=== PATIENT | male | born 1965 | race African-American/Black ===

== ENCOUNTER 2019-09-30 04:42 | Emergency (ER) | payer MEDICAID ==
[~2019-09-30] VITALS: Ht 167.6 cm; Wt 97.7 kg
[2019-09-30 09:32] LABS: BASOPHILS % 0.5 % (0.0-2.0); HEMOGLOBIN. 16.9 g/dL (14.0-18.0); LYMPHOCYTES % 37.8 % (20.0-50.0); MEAN CORPUSCULAR HEMOGLOBIN 29.1 pg (28.0-32.0); MEAN CORPUSCULAR VOLUME 85.7 fL (80.0-94.0); MONOCYTES % 13.8 % (2.0-8.0); NEUTROPHILS % 45.9 % (40.0-76.0); PLATELET 119 x1000/uL (130-400); RED BLOOD CELL COUNT 5.83 mill/uL (4.7-6.1); RED CELL DISTRIBUTION WIDTH 14.9 % (11.6-14.6)
[2019-09-30 09:40] LABS: CHLORIDE 103 mEq/L (98-107)
[2019-09-30] MEDS ORDERED: ASPIRIN 325MG EC TABLET PO ONE (10:00)
[2019-09-30] MEDS ORDERED: CEFTRIAXONE 1 G PREMIX 50 ML IV ONE (10:30)
[2019-09-30] MEDS ORDERED: AZITHROMYCIN 500 MG in DEXT 5% WATER 250 ML IV ONE (10:30)
[2019-09-30] MEDS ORDERED: CLONIDINE 0.1MG TABLET PO PRN (11:00)
[2019-09-30] MEDS ORDERED: AZITHROMYCIN 500 MG in DEXT 5% WATER 250 ML IV SCH (11:00)
[2019-09-30] MEDS ORDERED: CEFTRIAXONE 1 G PREMIX 50 ML IV SCH (11:00)
[2019-09-30] MEDS ORDERED: IPRATROPIUM/ALBUTEROL 0.5-3(2.5)MG/3ML NEB HHN PRN (11:00)
[2019-09-30 11:18] LABS: CLARITY URINE CLEAR (CLEAR); COLOR URINE YELLOW (YELLOW); KETONES URINE NEGATIVE (NEGATIVE); LEUKOCYTE ESTERASE URINE NEGATIVE (NEGATIVE); NITRITE URINE NEGATIVE (NEGATIVE); OCCULT BLOOD URINE 1+ (NEGATIVE); PH URINE 5.5 (4.5-8.0); PROTEIN URINE TRACE (NEGATIVE); SPECIFIC GRAVITY URINE 1.027 (1.005-1.030)
[2019-09-30 11:29] LABS: *AMPHETAMINES SCREEN URINE NEGATIVE (NEGATIVE); *BARBITURATES SCREEN URINE NEGATIVE (NEGATIVE); *BENZODIAZEPINES SCREEN URINE NEGATIVE (NEGATIVE); *COCAINE SCREEN URINE NEGATIVE (NEGATIVE)
[2019-09-30 11:30] LABS: CANNABINOID URINE SCREEN NEGATIVE (NEGATIVE); METHADONE URINE SCREEN NEGATIVE (NEGATIVE); OPIATES URINE SCREEN NEGATIVE (NEGATIVE); PHENCYCLIDINE URINE SCREEN NEGATIVE (NEGATIVE)
[2019-09-30] MEDS ORDERED: ENOXAPARIN 30MG/0.3ML SYR SUBCUT SCH (11:30)
[2019-09-30] MEDS ORDERED: HYDRALAZINE HCL 100MG TABLET PO NR (13:45)
[2019-09-30] MEDS ORDERED: SODIUM CHLORIDE 0.9% 1,000 ML IV ONE (15:45)
[2019-09-30] MEDS ORDERED: MORPHINE SULFATE 4 MG/ML CPJ (NOT FOR IM USE) IV NR (16:00)
[2019-09-30] MEDS ORDERED: HEPARIN 5000 UNITS/ML VIAL IV ONE (16:00)
[2019-09-30 16:48] VITALS: BP 130/70
[2019-09-30] MEDS ORDERED: AMLODIPINE 5MG TABLET PO SCH (21:00)
[2019-09-30] MEDS ORDERED: ATORVASTATIN CALCIUM 20MG TABLET PO SCH (21:00)
[2019-09-30] MEDS ORDERED: HYDRALAZINE HCL 100MG TABLET PO SCH (21:00)
[2019-10-01] MEDS ORDERED: ASPIRIN 81MG TABLET PO SCH (09:00)
== END 2019-09-30 16:55 | disposition short-term general hospital (02) ==
LOC: ER 04:42 → CANBEDREQ 17:24
DX: I21.4 Non-ST elevation (NSTEMI) myocardial infarction (principal); J18.9 Pneumonia, unspecified organism; N17.9 Acute kidney failure, unspecified; I95.9 Hypotension, unspecified; I10 Essential (primary) hypertension; E78.00 Pure hypercholesterolemia, unspecified; E66.9 Obesity, unspecified; Z68.34 Body mass index [BMI] 34.0-34.9, adult; Z98.890 Other specified postprocedural states; Z91.14 Patient's other noncompliance with medication regimen
CPT/HCPCS: 36415; 71045; 80053; 80061; 80305; 81003; 83880; 84443; 84484; 85025; 87040; 87804; 93005; 96365; 96366; 96372; 96375; 99291; J0456; J0696; J1644; J1650; J7060

== ENCOUNTER 2022-03-08 12:40 | Emergency (ER) | payer MEDICARE, OTHER ==
[~2022-03-08] VITALS: Ht 167.6 cm; Wt 95.0 kg
[2022-03-08] MEDS ORDERED: IBUPROFEN 600MG TABLET PO STA (16:03)
[2022-03-08 16:56] VITALS: BP 149/92
[2022-03-08] MEDS ORDERED: CYCL5TAB PO (17:09)
[2022-03-08] MEDS ORDERED: IBUP-2030 PO (17:09)
== END 2022-03-08 17:35 | disposition home or self-care (01) ==
LOC: ER 12:40
DX: M43.6 Torticollis (principal); I10 Essential (primary) hypertension; I25.2 Old myocardial infarction
CPT/HCPCS: 99282

== ENCOUNTER 2025-03-15 12:10 | Emergency (ER) | payer OTHER, MEDICARE ==
[~2025-03-15] VITALS: Ht 170.2 cm; Wt 95.0 kg
[~2025-03-15 12:10] MED LIST: CYCL5TAB3 PO; IBUP-2030 PO
[2025-03-15 12:20] VITALS: O2SAT 98
[2025-03-15] MEDS ORDERED: CYCL5TAB3 MT (13:20)
[2025-03-15] MEDS ORDERED: LIDO-53 TP (13:20)
[2025-03-15 13:47] VITALS: BP 135/87; PULSE 78; RESP 16; TEMP 36.6; O2SAT 99
== END 2025-03-15 13:48 | disposition home or self-care (01) ==
LOC: ER 12:10
DX: M25.512 Pain in left shoulder (principal); I10 Essential (primary) hypertension; I25.2 Old myocardial infarction; Z79.899 Other long term (current) drug therapy; V89.2XXA Person injured in unspecified motor-vehicle accident, traffic, initial encounter; Y93.89 Activity, other specified; Y92.89 Other specified places as the place of occurrence of the external cause; Y99.8 Other external cause status
CPT/HCPCS: 99283

== ENCOUNTER 2025-04-23 07:15 | Emergency (ER) | payer MEDICARE, OTHER ==
[~2025-04-23] VITALS: Ht 172.7 cm; Wt 96.0 kg
[~2025-04-23 07:15] MED LIST changes: +CYCL5TAB3 MT; +LIDO-53 TP
[2025-04-23 07:23] VITALS: O2SAT 98
[2025-04-23 08:49] VITALS: BP 189/120; PULSE 63; RESP 14; TEMP 37.1; O2SAT 96
== END 2025-04-23 09:32 | disposition home or self-care (01) ==
LOC: ER 07:15
DX: S20.329A Blister (nonthermal) of unspecified front wall of thorax, initial encounter (principal); I25.2 Old myocardial infarction; I10 Essential (primary) hypertension; Z79.899 Other long term (current) drug therapy; X58.XXXA Exposure to other specified factors, initial encounter; Y93.89 Activity, other specified; Y92.89 Other specified places as the place of occurrence of the external cause; Y99.8 Other external cause status
CPT/HCPCS: 99282

== ENCOUNTER 2025-08-12 08:03 | Emergency (ER) | payer MEDICAID, MEDICARE ==
[~2025-08-12] VITALS: Ht 175.3 cm; Wt 91.0 kg
[~2025-08-12 08:03] MED LIST changes: +AMI2 PO; +ASPI-1406 PO; +CARV6.2548 MT; -CYCL5TAB3 MT; -CYCL5TAB3 PO; +DOCU-422 PO; +FURO20TA4 PO; -IBUP-2030 PO; +ISOS-51 PO; -LIDO-53 TP; +LIP40 PO; +POTA-189 PO
[2025-08-12 08:10] VITALS: O2SAT 97
[2025-08-12] MEDS ORDERED: AMOX1TAB16 MT (10:58)
[2025-08-12 11:26] VITALS: BP 152/103; PULSE 57; RESP 16; TEMP 36.7; O2SAT 97
== END 2025-08-12 11:27 | disposition home or self-care (01) ==
LOC: ER 08:03
DX: I88.9 Nonspecific lymphadenitis, unspecified (principal); I10 Essential (primary) hypertension; E11.9 Type 2 diabetes mellitus without complications; Z79.899 Other long term (current) drug therapy
CPT/HCPCS: 70360; 76536; 99284